=== PATIENT | male | born 1990 | race Caucasian/White ===

== ENCOUNTER 2024-07-16 08:38 | Emergency (ER) | payer BC ==
[2024-07-16] MEDS: Acetaminophen/HYDROcodone 325-5 MG Tab PO ONE (09:09)
== END 2024-07-16 09:27 | disposition home or self-care (01) ==
LOC: MW.ED 08:38
DX: M54.9 Dorsalgia, unspecified (principal); Z88.0 Allergy status to penicillin; Z88.1 Allergy status to other antibiotic agents
CPT/HCPCS: 99283; A9270